=== PATIENT | male | born 1945 | race Caucasian/White ===

== ENCOUNTER 2019-10-29 08:32 | Inpatient (IN) ==
[~2019-10-29 08:32] MED LIST: Bacitracin 50,000 UNIT, Polymyxin B Sulfate 500,000 UNIT, Sodium Chloride IRRigation 1,... IR ONE
[2019-10-29] MEDS ORDERED: *HR* Propofol 200 MG/20 ML VIAL IVP ONE (08:53)
[2019-10-29] MEDS ORDERED: *HR* FentaNYL (PF) 100 MCG/2 ML VIAL ONE (08:53)
[2019-10-29] MEDS ORDERED: Lidocaine -MPF 2% 2 ML VIAL ONE (08:54)
[2019-10-29] MEDS ORDERED: *HR* Midazolam HCl 2 MG/2 ML VIAL ONE (08:54)
[2019-10-29] MEDS ORDERED: Dexamethasone 4 MG/ML VIAL ONE (08:54)
[2019-10-29] MEDS ORDERED: *HR* Remifentanil 1 MG VIAL IVP ONE (08:54)
[2019-10-29] MEDS ORDERED: *HR* Rocuronium Bromide 50 MG/5 ML VIAL ONE (08:54)
[2019-10-29] MEDS ORDERED: *HR* Succinylcholine 200 MG/10 ML VIAL IVP ONE (08:54)
[2019-10-29] MEDS ORDERED: Ondansetron 4 MG/2 ML VIAL ONE (08:54)
[2019-10-29] MEDS ORDERED: Lidocaine HCL 4 ML Topical Solution (Laryng-O-Jet Kit Sterile Pak) TP ONE (09:10)
[2019-10-29] MEDS ORDERED: CeFAZolin Syr 2,000MG/20 ML 2,000 MG/20 ML SYRINGE IVPB ONE (09:32)
[2019-10-29] MEDS ORDERED: Ringers Solution, Lactated 1,000 ML IVC SCH ×2 (09:45→15:40)
[2019-10-29] MEDS ORDERED: *HR* HYDROmorphone (PF) 1 MG/ML SYRINGE IVP PRN (09:50)
[2019-10-29] MEDS ORDERED: Metoclopramide 10 MG/2 ML VIAL IVP ONE (09:50)
[2019-10-29] MEDS ORDERED: Ondansetron 4 MG/2 ML VIAL IVP ONE (09:50)
[2019-10-29] MEDS ORDERED: *HR* OxyCODONE Immed Rel 5 MG TABLET PO PRN (09:50)
[2019-10-29] MEDS ORDERED: Famotidine 20 MG/2 ML VIAL IVP ONE (09:50)
[2019-10-29] MEDS ORDERED: *HR* PHENYLEPHRINE 1,000 MCG/10 ML SYRINGE IVP ONE (11:43)
[2019-10-29] MEDS ORDERED: EPHEDrine 50 MG/ML VIAL ONE (11:52)
[2019-10-29] MEDS ORDERED: *HR* Vasopressin 20 UNIT/ML VIAL ONE (12:58)
[2019-10-29] MEDS ORDERED: *HR* HYDROMORPHONE 2 MG/ML VIAL ONE (14:41)
[2019-10-29] MEDS ORDERED: Naloxone 0.4 MG/ML INJ IVP PRN (15:40)
[2019-10-29] MEDS ORDERED: TESTOSTERONE PUMP TP SCH (15:40)
[2019-10-29] MEDS ORDERED: Acetaminophen 325 MG TABLET PO PRN ×2 (15:40)
[2019-10-29] MEDS ORDERED: Dextrose Gel 15 GM/37.5 ML TUBE PO PRN ×2 (15:42)
[2019-10-29] MEDS ORDERED: D5% in Water 1,000 ML IVC PRN (15:42)
[2019-10-29] MEDS ORDERED: *HR* Dextrose 50 % in Water (Syg) 50 ML SYRINGE IVP PRN (15:42)
[2019-10-29] MEDS: Ondansetron 4 MG/2 ML VIAL IVP PRN (16:00)
[2019-10-29] MEDS ORDERED: Insulin LISPRO 300 UNITS/3 ML VIAL SQ SCH ×4 (16:30→21:00)
[2019-10-29] MEDS: *HR* Promethazine 25 MG/ML VIAL IVP PRN (17:58)
[2019-10-29] MEDS: ceFAZolin 2,000 MG in 0.9 % Sodium Chloride 100 ML IVPB SCH (18:39)
[2019-10-29] MEDS: *HR* OxyCODONE Immed Rel 5 MG TABLET PO PRN (19:18)
[2019-10-29] MEDS ORDERED: Insulin DETEMIR 100 UNIT/ML X5UNITS SQ SCH (21:00)
[2019-10-29] MEDS ORDERED: INSULIN ASPART 36 UNIT SQ SCH (21:00)
[2019-10-29] MEDS: Pregabalin 75 MG CAPSULE PO SCH (21:46)
[2019-10-29] MEDS: *HR* Metformin 500 MG TABLET PO SCH (21:46)
[2019-10-29] MEDS: Cholecalciferol (D-3) 1,000 UNIT (25MCG) TABLET PO SCH (21:47)
[2019-10-29] MEDS: *HR* HYDROcodone/Acet 5/325 mg TABLET PO PRN (23:16)
[2019-10-30] MEDS: *HR* OxyCODONE Immed Rel 5 MG TABLET PO PRN ×5 (00:10→23:03)
[2019-10-30] MEDS: ceFAZolin 2,000 MG in 0.9 % Sodium Chloride 100 ML IVPB SCH (02:05)
[2019-10-30] MEDS: Cholecalciferol (D-3) 1,000 UNIT (25MCG) TABLET PO SCH ×2 (08:24→20:31)
[2019-10-30] MEDS: Pregabalin 75 MG CAPSULE PO SCH ×2 (08:25→20:31)
[2019-10-30] MEDS: *HR* Metformin 500 MG TABLET PO SCH (08:25)
[2019-10-30] MEDS: Ondansetron 4 MG/2 ML VIAL IVP PRN (08:32)
[2019-10-30] MEDS ORDERED: (Dutasteride 0.5 MG) PO SCH (09:00)
[2019-10-30] MEDS ORDERED: Lisinopril-HCTZ 20-12.5mg TABLET PO SCH (09:00)
[2019-10-30] MEDS ORDERED: Metoprolol XL (24 HR) Succ 25 MG TAB.ER.24H PO SCH (11:05)
[2019-10-30 11:25] LABS: Basophils # 0.1 K/mcL (0.0-0.2); Basophils % 0.4 %; Eosinophils # 0.1 K/mcL (0.0-0.6); Eosinophils % 0.3 %; Hematocrit 40.2 % (37.5-50.1); Immature Granulocytes % 0.5 % (0-4); Lymphocytes % 6.5 %; Mean Corpuscular HGB Conc 36.1 g/dL (31.6-35.5); Mean Corpuscular Volume 86.1 fL (83.0-100.0); Mean Platelet Volume 10.6 fL (9.4-12.4); Monocytes # 1.2 K/mcL (0.0-1.3); Monocytes % 7.6 %; Platelet Count 253 K/mcL (140-400); Red Blood Count 4.67 M/mcL (4.19-5.50); Red Cell Distribution Width 12.8 % (11.5-14.5); Segmented Neutrophils % 84.7 %
[2019-10-30 11:30] LABS: INR 1.1; Prothrombin Time 12.8 Seconds (9.4-12.1)
[2019-10-30] MEDS: Finasteride 5 MG TABLET PO SCH (11:31)
[2019-10-30 11:32] LABS: Hemoglobin 14.5 g/dL (12.9-16.9); White Blood Count 15.4 K/mcL (4.3-11.1)
[2019-10-30] MEDS: *HR* HYDROcodone/Acet 5/325 mg TABLET PO PRN (11:32)
[2019-10-30 11:53] LABS: Alanine Aminotransferase 27 Units/L (7-52); Albumin/Globulin Ratio 1.5 (1.1-2.2); Alkaline Phosphatase 76 Units/L (34-104); Aspartate Amino Transferase 54 Units/L (13-39); BUN/Creatinine Ratio 17 (6-26); Bilirubin,Total 0.7 mg/dL (0.3-1.0); Blood Urea Nitrogen 26 mg/dL (8-23); Calcium 9.2 mg/dL (8.6-10.3); Carbon Dioxide 26 mEq/L (23-29); Chloride 97 mEq/L (98-107); Globulin 2.6 g/dL (2.4-3.5); Glucose 282 mg/dL (70-105); Osmolality,Calculated 289 (280-300); Potassium 4.1 mEq/L (3.5-5.1); Sodium 132 mEq/L (136-145); Total Protein 6.6 g/dL (6.4-8.9); Troponin I < 0.03 ng/mL (< 0.04); eGFR For African Americans 53 (> 60); eGFR For Non-African Americans 44 (> 60)
[2019-10-30 12:06] LABS: Thyroid Stimulating Hormone 1.778 mcIU/mL (0.340-5.600)
[2019-10-30] MEDS: Insulin LISPRO 300 UNITS/3 ML VIAL SQ SCH ×6 (12:36→22:37)
[2019-10-30] MEDS ORDERED: Ringers Solution, Lactated 1,000 ML IVC ONE (14:16)
[2019-10-30] MEDS: *HR* Promethazine 25 MG/ML VIAL IVP PRN (14:18)
[2019-10-30 15:10] LABS: Magnesium 1.9 mg/dL (1.6-2.6)
[2019-10-30] MEDS ORDERED: Perflutren Lipid Microsphere 1.3 ML in 0.9 % Sodium Chloride 8.7 ML IVP ONE (17:25)
[2019-10-30] MEDS: carvediloL 25 MG TABLET PO SCH (17:40)
[2019-10-30] MEDS ORDERED: Insulin LISPRO 300 UNITS/3 ML VIAL SQ SCH ×2 (18:00→21:00)
[2019-10-30] MEDS ORDERED: Insulin DETEMIR 100 UNIT/ML X5UNITS SQ ONE (22:00)
[2019-10-31 01:43] LABS: Basophils % 0.3 %; Eosinophils # 0.2 K/mcL (0.0-0.6); Eosinophils % 1.1 %; Hematocrit 36.3 % (37.5-50.1); Immature Granulocytes % 0.6 % (0-4); Lymphocytes # 1.4 K/mcL (0.6-4.6); Lymphocytes % 10.7 %; Mean Corpuscular HGB Conc 34.4 g/dL (31.6-35.5); Mean Corpuscular Hemoglobin 30.9 pg (28.0-33.3); Mean Corpuscular Volume 89.6 fL (83.0-100.0); Mean Platelet Volume 10.7 fL (9.4-12.4); Monocytes # 1.1 K/mcL (0.0-1.3); Monocytes % 8.6 %; Neutrophils # 10.3 K/mcL (1.6-8.9); Platelet Count 214 K/mcL (140-400); Red Blood Count 4.05 M/mcL (4.19-5.50); Red Cell Distribution Width 12.6 % (11.5-14.5); Segmented Neutrophils % 78.7 %; White Blood Count 13.1 K/mcL (4.3-11.1)
[2019-10-31 01:46] LABS: Hemoglobin 12.5 g/dL (12.9-16.9)
[2019-10-31 01:55] LABS: Alanine Aminotransferase 19 Units/L (7-52); Albumin 3.5 g/dL (3.5-5.7); Albumin/Globulin Ratio 1.5 (1.1-2.2); Alkaline Phosphatase 65 Units/L (34-104); Aspartate Amino Transferase 44 Units/L (13-39); BUN/Creatinine Ratio 17 (6-26); Bilirubin,Total 0.8 mg/dL (0.3-1.0); Blood Urea Nitrogen 23 mg/dL (8-23); Calcium 8.8 mg/dL (8.6-10.3); Carbon Dioxide 29 mEq/L (23-29); Chloride 95 mEq/L (98-107); Globulin 2.4 g/dL (2.4-3.5); Glucose 225 mg/dL (70-105); Osmolality,Calculated 285 (280-300); Potassium 4.4 mEq/L (3.5-5.1); Sodium 132 mEq/L (136-145); Total Protein 5.9 g/dL (6.4-8.9); eGFR For African Americans > 60 (> 60); eGFR For Non-African Americans 51 (> 60)
[2019-10-31] MEDS: *HR* OxyCODONE Immed Rel 5 MG TABLET PO PRN ×3 (05:23→16:41)
[2019-10-31] MEDS: Finasteride 5 MG TABLET PO SCH (08:23)
[2019-10-31] MEDS: Cholecalciferol (D-3) 1,000 UNIT (25MCG) TABLET PO SCH ×2 (08:23→22:04)
[2019-10-31] MEDS: Pregabalin 75 MG CAPSULE PO SCH ×2 (08:23→22:04)
[2019-10-31] MEDS: carvediloL 25 MG TABLET PO SCH ×2 (08:24→16:41)
[2019-10-31] MEDS: Insulin LISPRO 300 UNITS/3 ML VIAL SQ SCH ×6 (08:29→22:06)
[2019-10-31] MEDS ORDERED: carvediloL 25 MG TABLET PO SCH (09:00)
[2019-10-31] MEDS ORDERED: *HR* Dextrose 50 % in Water (Syg) 50 ML SYRINGE IVP PRN (11:49)
[2019-10-31] MEDS ORDERED: D5% in Water 1,000 ML IVC PRN (11:49)
[2019-10-31] MEDS ORDERED: Dextrose Gel 15 GM/37.5 ML TUBE PO PRN ×2 (11:49)
[2019-10-31 12:01] LABS: INR 1.2; Prothrombin Time 13.1 Seconds (9.4-12.1)
[2019-10-31] MEDS: Insulin DETEMIR 100 UNIT/ML X5UNITS SQ SCH ×2 (12:59→22:04)
[2019-10-31] MEDS: 0.9 % Sodium Chloride 1,000 ML IVC SCH ×2 (13:02→22:02)
[2019-10-31] MEDS: *HR* Enoxaparin 120 MG/0.8 ML SYRINGE SQ SCH (17:41)
[2019-10-31] MEDS ORDERED: *HR* Warfarin 5 MG TABLET PO ONE (18:00)
[2019-10-31] MEDS ORDERED: Warfarin perPT PO PRN (18:00)
[2019-10-31] MEDS ORDERED: *HR* Warfarin 5 MG TABLET PO SCH (18:00)
[2019-10-31] MEDS: *HR* HYDROcodone/Acet 5/325 mg TABLET PO PRN (22:03)
[2019-11-01 00:33] LABS: Basophils # 0.1 K/mcL (0.0-0.2); Basophils % 0.5 %; Eosinophils # 0.3 K/mcL (0.0-0.6); Eosinophils % 2.9 %; Immature Granulocytes % 0.3 % (0-4); Lymphocytes # 1.8 K/mcL (0.6-4.6); Lymphocytes % 18.7 %; Mean Corpuscular HGB Conc 34.3 g/dL (31.6-35.5); Mean Corpuscular Hemoglobin 30.8 pg (28.0-33.3); Mean Platelet Volume 10.7 fL (9.4-12.4); Monocytes % 9.9 %; Neutrophils # 6.5 K/mcL (1.6-8.9); Platelet Count 194 K/mcL (140-400); Red Blood Count 3.89 M/mcL (4.19-5.50); Red Cell Distribution Width 12.6 % (11.5-14.5); Segmented Neutrophils % 67.7 %; White Blood Count 9.7 K/mcL (4.3-11.1)
[2019-11-01 00:54] LABS: Alanine Aminotransferase 17 Units/L (7-52); Albumin 3.4 g/dL (3.5-5.7); Albumin/Globulin Ratio 1.4 (1.1-2.2); Alkaline Phosphatase 57 Units/L (34-104); Aspartate Amino Transferase 33 Units/L (13-39); BUN/Creatinine Ratio 22 (6-26); Bilirubin,Total 0.5 mg/dL (0.3-1.0); Blood Urea Nitrogen 31 mg/dL (8-23); Calcium 8.9 mg/dL (8.6-10.3); Carbon Dioxide 26 mEq/L (23-29); Chloride 101 mEq/L (98-107); Globulin 2.5 g/dL (2.4-3.5); Glucose 154 mg/dL (70-105); Osmolality,Calculated 288 (280-300); Potassium 3.9 mEq/L (3.5-5.1); Sodium 134 mEq/L (136-145); Total Protein 5.9 g/dL (6.4-8.9); eGFR For African Americans > 60 (> 60); eGFR For Non-African Americans 50 (> 60)
[2019-11-01 01:06] LABS: INR 1.4; Prothrombin Time 16.4 Seconds (9.4-12.1)
[2019-11-01] MEDS: *HR* OxyCODONE Immed Rel 5 MG TABLET PO PRN (05:12)
[2019-11-01] MEDS: *HR* Enoxaparin 120 MG/0.8 ML SYRINGE SQ SCH (05:12)
[2019-11-01 07:24] VITALS: BP 131/67
[2019-11-01] MEDS: Insulin DETEMIR 100 UNIT/ML X5UNITS SQ SCH (08:47)
[2019-11-01] MEDS: Cholecalciferol (D-3) 1,000 UNIT (25MCG) TABLET PO SCH (09:02)
[2019-11-01] MEDS: Pregabalin 75 MG CAPSULE PO SCH (09:02)
[2019-11-01] MEDS: carvediloL 25 MG TABLET PO SCH (09:02)
[2019-11-01] MEDS: Finasteride 5 MG TABLET PO SCH (09:02)
[2019-11-01] MEDS: Insulin LISPRO 300 UNITS/3 ML VIAL SQ SCH ×2 (09:02)
[2019-11-01 10:44] LABS: Estimated Average Glucose 186 mg/dl
== END 2019-11-01 11:57 | disposition home or self-care (01) | DRG 454 ==
LOC: SAMDAY 08:32 → 3NENU 08:32 → SUATTDRO 10-30 14:39
PROVIDERS: ADMIT Orthopaedic Surgery Orthopaedic Surgery of the Spine; ATTEND Pharmacist